=== PATIENT | female | born 1960 | race African-American/Black ===

== ENCOUNTER 2018-11-23 22:04 | Inpatient (IN) | payer MEDICAID ==
[~2018-11-23] VITALS: Ht 154.9 cm; Wt 64.2 kg
[2018-11-24] MEDS ORDERED: ONDANSETRON HCL 4MG/2ML INJ IV STA (00:52)
[2018-11-24] MEDS ORDERED: KETOROLAC 30MG/ML VIAL IV STA (00:52)
[2018-11-24] MEDS ORDERED: SODIUM CHLORIDE 0.9% 1,000 ML IV ONE (00:52)
[2018-11-24] MEDS ORDERED: CLONIDINE 0.2MG TABLET PO ONE (01:00)
[2018-11-24 01:17] LABS: BASOPHILS % 0.8 % (0.0-2.0); EOSINOPHILS % 0.7 % (0.0-5.0); HEMATOCRIT. 39.1 % (36.0-48.0); HEMOGLOBIN. 12.6 g/dL (12.0-16.0); LYMPHOCYTES % 25.4 % (20.0-50.0); MEAN CORPUSCULAR HEMOGLOBIN 26.4 pg (28.0-32.0); MONOCYTES % 6.2 % (2.0-8.0); NEUTROPHILS % 66.9 % (40.0-76.0); PLATELET 267 x1000/uL (130-400); RED BLOOD CELL COUNT 4.77 mill/uL (4.2-5.4)
[2018-11-24 01:23] LABS: CHLORIDE 99 mEq/L (98-107)
[2018-11-24 01:29] LABS: BETA HYDROXYBUTYRATE 0.6 mMol/L (0.0-0.3)
[2018-11-24] MEDS ORDERED: INSULIN REGULAR (HUMULIN R) 300UNITS/3ML SUBCUT NR (04:15)
[2018-11-24] MEDS ORDERED: GUAIFENESIN 200MG/10ML SUGAR FREE UDC PO PRN (08:30)
[2018-11-24] MEDS ORDERED: DIPHENHYDRAMINE 50MG/ML VIAL IV PRN (08:30)
[2018-11-24] MEDS ORDERED: ACETAMINOPHEN 325MG TABLET PO PRN (08:30)
[2018-11-24] MEDS ORDERED: ONDANSETRON HCL 4MG/2ML INJ IV PRN (08:30)
[2018-11-24] MEDS ORDERED: IPRATROPIUM/ALBUTEROL 0.5-3(2.5)MG/3ML NEB INH PRN (08:30)
[2018-11-24] MEDS ORDERED: CLONIDINE 0.1MG TABLET PO PRN (08:30)
[2018-11-24] MEDS ORDERED: HYDROCODONE/ACETAMINOPHEN 5/325MG TABLET PO PRN (08:30)
[2018-11-24] MEDS ORDERED: MAGNESIUM/ALUMINUM HYDROXIDE/SIMETHICONE 30ML UDC PO PRN (08:30)
[2018-11-24] MEDS ORDERED: DOCUSATE SODIUM 100MG CAPSULE PO PRN (08:30)
[2018-11-24 08:50] VITALS: BP 118/69
[2018-11-24 09:26] LABS: PHOSPHORUS 4.8 mg/dL (2.5-4.9)
[2018-11-24] MEDS ORDERED: DEXTROSE 50% WATER 50ML SYRINGE IV PRN (12:30)
[2018-11-24] MEDS: BLOOD SUGAR DIAGNOSTIC STRIP TEST SCH ×3 (13:10→21:12)
[2018-11-24] MEDS: INSULIN LISPRO 100 UNITS/ML SUBCUT SCH ×3 (13:46→21:14)
[2018-11-24] MEDS: ENOXAPARIN 40MG/0.4ML SYR SUBCUT SCH (13:48)
[2018-11-24 16:00] VITALS: BP 131/67
[2018-11-24] MEDS ORDERED: BLOOD SUGAR DIAGNOSTIC STRIP TEST SCH (16:45)
[2018-11-24] MEDS ORDERED: GABA800T97 MT (17:05)
[2018-11-24] MEDS ORDERED: FOLI-43 MT (17:06)
[2018-11-24] MEDS ORDERED: CLOP75TA33 MT (17:07)
[2018-11-24] MEDS ORDERED: CITA10SO PO (17:08)
[2018-11-24] MEDS ORDERED: BENA40TA9 MT (17:09)
[2018-11-24] MEDS ORDERED: INSU100I24 SQ (17:10)
[2018-11-24] MEDS ORDERED: GLAT40SY3 SQ (17:11)
[2018-11-24] MEDS ORDERED: INSULIN LISPRO 100 UNITS/ML SUBCUT SCH (17:15)
[2018-11-24] MEDS ORDERED: INFLUENZA VIRUS VACCINE(AFLURIA) 0.5ML SYR IM ONE (17:15)
[2018-11-24] MEDS ORDERED: PNEUMOCOCCAL 23-VAL P-SAC VAC 0.5 ML IM ONE (17:15)
[2018-11-24 20:00] VITALS: BP 139/60
[2018-11-24] MEDS: FOLIC ACID 1MG TABLET PO SCH (21:54)
[2018-11-24] MEDS: CLOPIDOGREL 75MG TABLET PO SCH (21:54)
[2018-11-24] MEDS: GABAPENTIN 400MG CAPSULE PO SCH (21:54)
[2018-11-24] MEDS: CITALOPRAM HYDROBROMIDE 10MG TABLET PO SCH (21:54)
[2018-11-24] MEDS: BENAZEPRIL 10MG TABLET PO SCH (21:56)
[2018-11-24] MEDS ORDERED: GABAPENTIN 300MG CAPSULE PO SCH (22:00)
[2018-11-25] VITALS: BP 143/71
[2018-11-25 04:00] VITALS: BP 135/59
[2018-11-25] MEDS: GABAPENTIN 400MG CAPSULE PO SCH ×2 (05:38→14:23)
[2018-11-25] MEDS: BLOOD SUGAR DIAGNOSTIC STRIP TEST SCH ×2 (06:00→12:33)
[2018-11-25] MEDS: INSULIN LISPRO 100 UNITS/ML SUBCUT SCH ×2 (06:37→12:43)
[2018-11-25 07:15] LABS: BASOPHILS % 0.5 % (0.0-2.0); EOSINOPHILS % 1.7 % (0.0-5.0); HEMATOCRIT. 33.5 % (36.0-48.0); LYMPHOCYTES % 29.1 % (20.0-50.0); MEAN CORPUSCULAR HEMOGLOBIN 26.9 pg (28.0-32.0); MEAN CORPUSCULAR VOLUME 81.8 fL (81.0-99.0); MEAN PLATELET VOLUME 9.2 fl (7.4-10.4); MONOCYTES % 6.6 % (2.0-8.0); NEUTROPHILS % 62.1 % (40.0-76.0); PLATELET 247 x1000/uL (130-400)
[2018-11-25 08:00] VITALS: BP 94/70
[2018-11-25 08:10] LABS: CHLORIDE 105 mEq/L (98-107)
[2018-11-25 08:24] LABS: LDL CHOLESTEROL 101 mg/dL (5-100)
[2018-11-25 08:26] LABS: HDL CHOLESTEROL 47 mg/dL (40-59)
[2018-11-25] MEDS: BENAZEPRIL 10MG TABLET PO SCH (09:00)
[2018-11-25] MEDS: CITALOPRAM HYDROBROMIDE 10MG TABLET PO SCH (09:23)
[2018-11-25] MEDS: FOLIC ACID 1MG TABLET PO SCH (09:23)
[2018-11-25] MEDS: CLOPIDOGREL 75MG TABLET PO SCH (09:25)
[2018-11-25] MEDS: ENOXAPARIN 40MG/0.4ML SYR SUBCUT SCH (09:26)
[2018-11-25 12:00] VITALS: BP 169/83
[2018-11-25 15:37] VITALS: BP 143/73
[2018-11-25 16:00] VITALS: BP 143/73
== END 2018-11-25 16:30 | disposition home or self-care (01) | DRG 347 ==
LOC: ER 22:04 → EDBEDREQTM 11-24 05:00 → EDBEDREQ 11-24 05:00 → ENRESERV 11-24 07:21 → 5WST 11-24 08:44
PROVIDERS: ADMIT Internal Medicine; ATTEND Internal Medicine
DX: M48.02 Spinal stenosis, cervical region (principal); E11.42 Type 2 diabetes mellitus with diabetic polyneuropathy; E11.65 Type 2 diabetes mellitus with hyperglycemia; G35 Multiple sclerosis; F17.200 Nicotine dependence, unspecified, uncomplicated; I10 Essential (primary) hypertension; Z86.73 Personal history of transient ischemic attack (TIA), and cerebral infarction without residual deficits; Z79.84 Long term (current) use of oral hypoglycemic drugs; Z71.6 Tobacco abuse counseling
CPT/HCPCS: 36415; 71045; 72141; 80061; 82010; 82962; 83036; 83735; 83880; 84100; 84443; 84484; 90686; 90732; 93005; 93880; 93970; 96361; 96372; 96374; 96375; 97162; 97166; 99291; J1650; J1815; J1885; J2405; J7030

== ENCOUNTER → 2021-11-13 | Day surgery (SDC) | payer MEDICAID ==
[~2021-11-13] VITALS: Ht 154.9 cm; Wt 52.2 kg
[~2021-11-13] MED LIST: AMLO5TAB88 PO; BALANCED SALT IRRIG SOLN 15ML ONE; BALANCED SALT IRRIG SOLN COMB1 500ML OP ONE; BENA40TA9 MT; BENA40TA9 PO; CIPROFLOXACIN 0.3% OPHTH SOLN 2.5ML ONE; CITA10SO PO; CITA10TA9 PO; CLOP75TA33 MT; CYCLOPENTOLATE HCL 1% OPHTH DROPS 2ML ONE; CYCLOPENTOLATE HCL 1% OPHTH DROPS 2ML RIGHTEYE NR; FENTANYL CITRATE/PF 50MCG/ML 2ML VIAL ONE; FOLI-43 MT; GABA800T97 MT; GLAT40SY3 SQ; HYALURONATE SODIUM 10 MG/ML 0.55ML SYRINGE IO ONE; HYDR25TA PO; INSU100I24 SQ; INSU100I38 SQ; LABETALOL 5MG/ML SYR 20 MG/4 ML SYRINGE IV NR; LABETALOL 5MG/ML SYR 20 MG/4 ML SYRINGE IV ONE; LIDOCAINE HCL/PF 2% 20 MG/ML 10ML VIAL ONE; MIDAZOLAM HCL 2 MG/2 ML VIAL ONE; NEO/POLYMYX B SULF/DEXAMETH OPHTH OINT 3.5GM ONE; PHENYLEPHRINE HCL 10% OPHTH DROPS 5ML RIGHTEYE NR; PREDNISOLONE ACETATE 1% OPHTH DROPS 5ML ONE; SIMV-46 PO; SODIUM CHLORIDE 0.9% 1,000 ML IV SCH; TETRACAINE 0.5% OPHTH DROPS 4ML ONE; TROPICAMIDE 1% OPHTH DROPS 15ML ONE; TROPICAMIDE 1% OPHTH DROPS 15ML RIGHTEYE NR
[2021-11-13 08:38] LABS: BASOPHILS % 0.8 % (0.0-2.0); EOSINOPHILS % 0.8 % (0.0-5.0); HEMATOCRIT. 36.4 % (36.0-48.0); HEMOGLOBIN. 11.9 g/dL (12.0-16.0); LYMPHOCYTES % 24.1 % (20.0-50.0); MEAN CORPUSCULAR HEMOGLOBIN 26.8 pg (28.0-32.0); MEAN CORPUSCULAR VOLUME 81.8 fL (81.0-99.0); MEAN PLATELET VOLUME 9.2 fl (7.4-10.4); MONOCYTES % 5.2 % (2.0-8.0); NEUTROPHILS % 69.1 % (40.0-76.0); PLATELET 281 x1000/uL (130-400); RED BLOOD CELL COUNT 4.45 mill/uL (4.2-5.4); RED CELL DISTRIBUTION WIDTH 12.9 % (11.6-14.6)
[2021-11-13 08:45] LABS: CHLORIDE 102 mEq/L (98-107)
[2021-11-13 10:28] VITALS: BP 196/89
== END | disposition home or self-care (01) ==
LOC: OR 07:38
PROVIDERS: ATTEND Ophthalmology
DX: E11.36 Type 2 diabetes mellitus with diabetic cataract (principal); H25.89 Other age-related cataract; I10 Essential (primary) hypertension; E78.00 Pure hypercholesterolemia, unspecified; F17.210 Nicotine dependence, cigarettes, uncomplicated; Z86.73 Personal history of transient ischemic attack (TIA), and cerebral infarction without residual deficits; Z79.899 Other long term (current) drug therapy; Z98.890 Other specified postprocedural states; Z20.822 Contact with and (suspected) exposure to COVID-19; Z79.4 Long term (current) use of insulin; Z82.49 Family history of ischemic heart disease and other diseases of the circulatory system; Z83.3 Family history of diabetes mellitus
CPT/HCPCS: 36415; 66984; 80048; 82962; 85025; 87426; 93005; J2250; J3010; J3490; V2632

== ENCOUNTER → 2022-01-29 | Day surgery (SDC) | payer MEDICAID ==
[~2022-01-29] VITALS: Ht 154.9 cm; Wt 52.2 kg
[~2022-01-29] MED LIST changes: -BALANCED SALT IRRIG SOLN COMB1 500ML OP ONE; -BENA40TA9 MT; -CITA10SO PO; +CYCLOPENTOLATE HCL 1% OPHTH DROPS 2ML LEFTEYE NR; -CYCLOPENTOLATE HCL 1% OPHTH DROPS 2ML RIGHTEYE NR; +INSULIN REGULAR (HUMULIN R) 300UNITS/3ML VIAL SUBCUT NR; -LABETALOL 5MG/ML SYR 20 MG/4 ML SYRINGE IV NR; -LABETALOL 5MG/ML SYR 20 MG/4 ML SYRINGE IV ONE; +LABETALOL HCL 5MG/ML VIAL 20ML IV ONE; +LIDOCAINE HCL 1% 50ML VIAL (10MG/ML) ONE; +PHENYLEPHRINE HCL 10% OPHTH DROPS 5ML LEFTEYE NR; +PHENYLEPHRINE HCL 10% OPHTH DROPS 5ML ONE; -PHENYLEPHRINE HCL 10% OPHTH DROPS 5ML RIGHTEYE NR; -SODIUM CHLORIDE 0.9% 1,000 ML IV SCH; +TROPICAMIDE 1% OPHTH DROPS 15ML LEFTEYE NR; -TROPICAMIDE 1% OPHTH DROPS 15ML RIGHTEYE NR
[2022-01-29 08:45] LABS: BASOPHILS % 0.7 % (0.0-2.0); HEMATOCRIT. 37.2 % (36.0-48.0); HEMOGLOBIN. 11.9 g/dL (12.0-16.0); LYMPHOCYTES % 23.7 % (20.0-50.0); MEAN CORPUSCULAR HEMOGLOBIN 26.7 pg (28.0-32.0); MEAN CORPUSCULAR VOLUME 83.6 fL (81.0-99.0); MEAN PLATELET VOLUME 9.9 fl (7.4-10.4); MONOCYTES % 5.6 % (2.0-8.0); PLATELET 259 x1000/uL (130-400); RED BLOOD CELL COUNT 4.45 mill/uL (4.2-5.4)
[2022-01-29 08:59] LABS: CHLORIDE 102 mEq/L (98-107)
== END | disposition home or self-care (01) ==
LOC: OR 07:37
PROVIDERS: ATTEND Ophthalmology
DX: E11.36 Type 2 diabetes mellitus with diabetic cataract (principal); H25.89 Other age-related cataract; I10 Essential (primary) hypertension; E78.00 Pure hypercholesterolemia, unspecified; F17.210 Nicotine dependence, cigarettes, uncomplicated; Z79.899 Other long term (current) drug therapy; Z98.890 Other specified postprocedural states; Z79.4 Long term (current) use of insulin; Z20.822 Contact with and (suspected) exposure to COVID-19
CPT/HCPCS: 36415; 66984; 80048; 82962; 85025; 87426; 93005; C1893; C9803; J2250; J3010; J3490; V2632

== ENCOUNTER 2022-04-20 17:49 | Inpatient (IN) | payer MEDICAID ==
[~2022-04-20] VITALS: Ht 160 cm; Wt 75.3 kg
[~2022-04-20 17:49] MED LIST changes: -BALANCED SALT IRRIG SOLN 15ML ONE; -BENA40TA9 PO; +BENA40TA91 PO; -CIPROFLOXACIN 0.3% OPHTH SOLN 2.5ML ONE; +CITA10TA88 PO; -CITA10TA9 PO; -CYCLOPENTOLATE HCL 1% OPHTH DROPS 2ML LEFTEYE NR; -CYCLOPENTOLATE HCL 1% OPHTH DROPS 2ML ONE; -FENTANYL CITRATE/PF 50MCG/ML 2ML VIAL ONE; -HYALURONATE SODIUM 10 MG/ML 0.55ML SYRINGE IO ONE; -INSULIN REGULAR (HUMULIN R) 300UNITS/3ML VIAL SUBCUT NR; -LABETALOL HCL 5MG/ML VIAL 20ML IV ONE; -LIDOCAINE HCL 1% 50ML VIAL (10MG/ML) ONE; -LIDOCAINE HCL/PF 2% 20 MG/ML 10ML VIAL ONE; -MIDAZOLAM HCL 2 MG/2 ML VIAL ONE; -NEO/POLYMYX B SULF/DEXAMETH OPHTH OINT 3.5GM ONE; -PHENYLEPHRINE HCL 10% OPHTH DROPS 5ML LEFTEYE NR; -PHENYLEPHRINE HCL 10% OPHTH DROPS 5ML ONE; -PREDNISOLONE ACETATE 1% OPHTH DROPS 5ML ONE; -TETRACAINE 0.5% OPHTH DROPS 4ML ONE; -TROPICAMIDE 1% OPHTH DROPS 15ML LEFTEYE NR; -TROPICAMIDE 1% OPHTH DROPS 15ML ONE
[2022-04-20 19:13] LABS: BASOPHILS % 0.3 % (0.0-2.0); HEMATOCRIT. 43.3 % (36.0-48.0); HEMOGLOBIN. 12.6 g/dL (12.0-16.0); LYMPHOCYTES % 7.4 % (20.0-50.0); MEAN CORPUSCULAR HEMOGLOBIN 26.1 pg (28.0-32.0); MEAN CORPUSCULAR VOLUME 89.8 fL (81.0-99.0); MEAN PLATELET VOLUME 10.8 fl (7.4-10.4); MONOCYTES % 6.5 % (2.0-8.0); NEUTROPHILS % 85.8 % (40.0-76.0); PLATELET 223 x1000/uL (130-400); RED BLOOD CELL COUNT 4.82 mill/uL (4.2-5.4); RED CELL DISTRIBUTION WIDTH 14.2 % (11.6-14.6)
[2022-04-20] MEDS ORDERED: VANCOMYCIN 1G PREMIX 200 ML IV NR (19:15)
[2022-04-20 19:16] LABS: CHLORIDE 101 mEq/L (98-107)
[2022-04-20] MEDS: PIPERACILLIN/TAZ 3.375G PREMIX 50 ML IV NR ×2 (19:41→19:59)
[2022-04-20] MEDS ORDERED: SODIUM CHLORIDE 0.9% 1000ML BAG (SEPSIS BOLUS) IV ONE (19:45)
[2022-04-20] MEDS ORDERED: ENOXAPARIN 80MG/0.8ML SYR SUBCUT NR (22:15)
[2022-04-20 23:56] LABS: INR 1.4
[2022-04-21] VITALS (11 sets, daily range): BP systolic 93–117; BP diastolic 57–79
[2022-04-21 10:01] LABS: BG BASE EXCESS -16.7 mmol/L (-2.0-2.0); BG CARBOXYHEMOGLOBIN 0.1 % (0.5-1.5); BG DEOXYHEMOGLOBIN 3.7 % (0.0-5.0); BG HCO3 ACT 9.6 mmol/L (22.0-26.0); BG METHEMOGLOBIN 0.2 % (0.0-1.5); BG OXYGEN SATURATION 96.3 % (92.0-98.5); BG PCO2 24.9 mmHg (35.0-45.0); BG PH 7.203 (7.350-7.450); BG PO2 105.8 mmHg (75.0-100.0); BG SAMPLE SITE LEFT RADIAL; BG TOTAL HEMOGLOBIN 12.4 g/dL (12.0-18.0); BG VENT MODE MASK - SIMPLE
[2022-04-21] MEDS ORDERED: SODIUM BICARBONATE 8.4% 1 MEQ/ML 50ML SYR IV NR (10:30)
[2022-04-21] MEDS ORDERED: DEXTROSE 50% WATER 50ML SYRINGE IV PRN (10:30)
[2022-04-21] MEDS: ASPIRIN 81MG TABLET PO SCH (10:50)
[2022-04-21] MEDS ORDERED: SODIUM BICARBONATE 8.4% 1 MEQ/ML 50ML SYR IV SCH (11:00)
[2022-04-21] MEDS ORDERED: SODIUM CHLORIDE 0.9% 1,000 ML IV SCH (11:00)
[2022-04-21] MEDS ORDERED: FUROSEMIDE 20MG/2ML VIAL IVP NR (11:00)
[2022-04-21] MEDS ORDERED: INSULIN GLARGINE 100 UNITS/ML SUBCUT SCH (11:00)
[2022-04-21] MEDS: BLOOD SUGAR DIAGNOSTIC STRIP TEST SCH ×3 (12:30→21:50)
[2022-04-21] MEDS: PIPERACILLIN/TAZOBACTAM 3.375 G in DEXTROSE 5% WATER 50 ML IV SCH ×2 (12:49→21:51)
[2022-04-21] MEDS: INSULIN LISPRO 100 UNITS/ML SUBCUT SCH ×3 (12:53→21:55)
[2022-04-21] MEDS ORDERED: ENOXAPARIN 60MG/0.6ML SYR SUBCUT SCH (13:00)
[2022-04-21 13:22] LABS: CHLORIDE 101 mEq/L (98-107)
[2022-04-21 13:28] LABS: HEMATOCRIT. 37.7 % (36.0-48.0); HEMOGLOBIN. 11.6 g/dL (12.0-16.0); MEAN CORPUSCULAR VOLUME 84.7 fL (81.0-99.0); MEAN PLATELET VOLUME 11.4 fl (7.4-10.4); PLATELET 112 x1000/uL (130-400); RED BLOOD CELL COUNT 4.45 mill/uL (4.2-5.4); RED CELL DISTRIBUTION WIDTH 13.4 % (11.6-14.6)
[2022-04-21 13:45] LABS: BETA HYDROXYBUTYRATE 1.8 mMol/L (0.0-0.3)
[2022-04-21] MEDS ORDERED: FUROSEMIDE 40MG/4ML VIAL IVP SCH (17:00)
[2022-04-21] MEDS: SODIUM BICARBONATE 150 MEQ in DEXTROSE 5% WATER 1,000 ML IV SCH (17:46)
[2022-04-21] MEDS ORDERED: IPRATROPIUM/ALBUTEROL 0.5-3(2.5)MG/3ML NEB HHN PRN (18:15)
[2022-04-21] MEDS: INSULIN GLARGINE 100 UNITS/ML SUBCUT SCH (21:56)
[2022-04-22] VITALS (12 sets, daily range): BP systolic 101–135; BP diastolic 53–85
[2022-04-22] MEDS: PIPERACILLIN/TAZOBACTAM 3.375 G in DEXTROSE 5% WATER 50 ML IV SCH (05:25)
[2022-04-22 07:15] LABS: BASOPHILS % 0.1 % (0.0-2.0); EOSINOPHILS % 0.5 % (0.0-5.0); HEMATOCRIT. 36.5 % (36.0-48.0); HEMOGLOBIN. 11.7 g/dL (12.0-16.0); LYMPHOCYTES % 10.1 % (20.0-50.0); MEAN CORPUSCULAR HEMOGLOBIN 26.3 pg (28.0-32.0); MEAN CORPUSCULAR VOLUME 82.4 fL (81.0-99.0); MEAN PLATELET VOLUME 11.2 fl (7.4-10.4); MONOCYTES % 6.4 % (2.0-8.0); NEUTROPHILS % 82.9 % (40.0-76.0); PLATELET 87 x1000/uL (130-400); RED BLOOD CELL COUNT 4.43 mill/uL (4.2-5.4); RED CELL DISTRIBUTION WIDTH 13.3 % (11.6-14.6)
[2022-04-22] MEDS: BLOOD SUGAR DIAGNOSTIC STRIP TEST SCH ×4 (07:30→21:00)
[2022-04-22] MEDS: ASPIRIN 81MG TABLET PO SCH (09:08)
[2022-04-22 09:09] LABS: BG CARBOXYHEMOGLOBIN 0.2 % (0.5-1.5); BG DEOXYHEMOGLOBIN 2.7 % (0.0-5.0); BG FRACTION INSPIRED OXYGEN 36; BG HCO3 ACT 19.4 mmol/L (22.0-26.0); BG METHEMOGLOBIN 0.3 % (0.0-1.5); BG OXYGEN SATURATION 97.3 % (92.0-98.5); BG OXYHEMOGLOBIN 96.8 % (94.0-97.0); BG PCO2 27.2 mmHg (35.0-45.0); BG PH 7.472 (7.350-7.450); BG PO2 108.7 mmHg (75.0-100.0); BG SAMPLE SITE LEFT RADIAL; BG TOTAL HEMOGLOBIN 11.7 g/dL (12.0-18.0); BG VENT MODE NASAL CANNULA
[2022-04-22] MEDS: INSULIN LISPRO 100 UNITS/ML SUBCUT SCH ×4 (09:09→21:00)
[2022-04-22] MEDS: INSULIN GLARGINE 100 UNITS/ML SUBCUT SCH ×2 (09:09→21:31)
[2022-04-22] MEDS ORDERED: ENOXAPARIN 60MG/0.6ML SYR SUBCUT SCH (13:00)
[2022-04-22] MEDS ORDERED: CEFEPIME 2,000 MG in DEXT 5% WATER 100 ML IV SCH (13:30)
[2022-04-22 13:42] LABS: PLATELET ESTIMATE SLIGHTLY DECREASED
[2022-04-22] MEDS ORDERED: CEFEPIME 1,000 MG in DEXTROSE 5% WATER 50 ML IV SCH (15:00)
[2022-04-22] MEDS: SODIUM BICARBONATE 150 MEQ in DEXTROSE 5% WATER 1,000 ML IV SCH (16:45)
[2022-04-22 18:26] LABS: BG BASE EXCESS -0.6 mmol/L (-2.0-2.0); BG DEOXYHEMOGLOBIN 7.8 % (0.0-5.0); BG FRACTION INSPIRED OXYGEN 21; BG HCO3 ACT 20.7 mmol/L (22.0-26.0); BG METHEMOGLOBIN 0.3 % (0.0-1.5); BG OXYGEN SATURATION 92.2 % (92.0-98.5); BG OXYHEMOGLOBIN 91.9 % (94.0-97.0); BG PCO2 24.8 mmHg (35.0-45.0); BG PH 7.539 (7.350-7.450); BG PO2 62.8 mmHg (75.0-100.0); BG SAMPLE SITE RIGHT RADIAL; BG TOTAL HEMOGLOBIN 11.8 g/dL (12.0-18.0); BG VENT MODE ROOM AIR
[2022-04-22 21:34] LABS: D-DIMER 23.18 mg/L FEU (<0.50); PROTHROMBIN TIME 20.3 sec (9.6-11.0)
[2022-04-23] VITALS (12 sets, daily range): BP systolic 106–140; BP diastolic 61–95
[2022-04-23 06:30] LABS: PHOSPHORUS 5.9 mg/dL (2.5-4.9)
[2022-04-23 06:34] LABS: BASOPHILS % 0.1 % (0.0-2.0); EOSINOPHILS % 0.4 % (0.0-5.0); HEMATOCRIT. 36.2 % (36.0-48.0); HEMOGLOBIN. 11.7 g/dL (12.0-16.0); LYMPHOCYTES % 10.1 % (20.0-50.0); MEAN CORPUSCULAR HEMOGLOBIN 26.7 pg (28.0-32.0); MEAN CORPUSCULAR VOLUME 82.8 fL (81.0-99.0); MEAN PLATELET VOLUME 11.1 fl (7.4-10.4); NEUTROPHILS % 83.4 % (40.0-76.0); PLATELET 60 x1000/uL (130-400); RED BLOOD CELL COUNT 4.38 mill/uL (4.2-5.4); RED CELL DISTRIBUTION WIDTH 13.4 % (11.6-14.6)
[2022-04-23] MEDS: INSULIN LISPRO 100 UNITS/ML SUBCUT SCH ×4 (08:00→21:00)
[2022-04-23] MEDS: BLOOD SUGAR DIAGNOSTIC STRIP TEST SCH ×4 (08:27→21:00)
[2022-04-23] MEDS: INSULIN GLARGINE 100 UNITS/ML SUBCUT SCH ×2 (10:00→22:00)
[2022-04-23 11:15] LABS: CLARITY URINE TURBID (CLEAR); COLOR URINE DARK YELLOW (YELLOW); KETONES URINE TRACE (NEGATIVE); LEUKOCYTE ESTERASE URINE 2+ (NEGATIVE); NITRITE URINE NEGATIVE (NEGATIVE); OCCULT BLOOD URINE 3+ (NEGATIVE); PH URINE 5.5 (4.5-8.0); PROTEIN URINE 4+ (NEGATIVE); SPECIFIC GRAVITY URINE 1.024 (1.005-1.030); UROBILINOGEN URINE 0.2 E.U./dL (0.2-1.0)
[2022-04-23 12:20] LABS: INR 2.3; PROTHROMBIN TIME 22.7 sec (9.6-11.0)
[2022-04-23 12:39] LABS: HEPATITIS B SURFACE ANTIGEN NEGATIVE
[2022-04-23] MEDS ORDERED: PHYTONADIONE 10MG/ML AMP SUBCUT SCH (14:00)
[2022-04-23 15:32] LABS: INR 2.5; PROTHROMBIN TIME 24.8 sec (9.6-11.0)
[2022-04-23 15:44] LABS: T4 FREE 1.48 ng/dL (0.76-1.46)
[2022-04-23 16:00] LABS: FOLIC ACID (FOLATE) SERUM >20 ng/mL ng/mL (>5.38); VITAMIN B12 SERUM >2000 pg/mL pg/mL (211-911)
[2022-04-23] MEDS: CEFEPIME 1,000 MG in DEXTROSE 5% WATER 50 ML IV SCH (17:08)
[2022-04-23] MEDS ORDERED: ONDANSETRON HCL 4MG/2ML INJ IV PRN (20:00)
[2022-04-24] VITALS (12 sets, daily range): BP systolic 92–137; BP diastolic 60–76
[2022-04-24 06:43] LABS: CHLORIDE 98 mEq/L (98-107)
[2022-04-24 06:44] LABS: BASOPHILS % 0.1 % (0.0-2.0); EOSINOPHILS % 0.1 % (0.0-5.0); HEMOGLOBIN. 11.3 g/dL (12.0-16.0); LYMPHOCYTES % 12.9 % (20.0-50.0); MEAN CORPUSCULAR HEMOGLOBIN 26.6 pg (28.0-32.0); MEAN CORPUSCULAR VOLUME 82.7 fL (81.0-99.0); MEAN PLATELET VOLUME 11.7 fl (7.4-10.4); MONOCYTES % 8.1 % (2.0-8.0); NEUTROPHILS % 78.8 % (40.0-76.0); PLATELET 51 x1000/uL (130-400); RED BLOOD CELL COUNT 4.23 mill/uL (4.2-5.4); RED CELL DISTRIBUTION WIDTH 13.6 % (11.6-14.6)
[2022-04-24 07:06] LABS: CREATINE KINASE 1180 IU/L (26-192); PHOSPHORUS 5.9 mg/dL (2.5-4.9)
[2022-04-24] MEDS: BLOOD SUGAR DIAGNOSTIC STRIP TEST SCH ×4 (07:30→21:17)
[2022-04-24] MEDS: INSULIN LISPRO 100 UNITS/ML SUBCUT SCH ×4 (08:00→21:00)
[2022-04-24] MEDS ORDERED: DILTIAZEM HCL 5MG/ML 5ML VIAL IV SCH (10:00)
[2022-04-24] MEDS: INSULIN GLARGINE 100 UNITS/ML SUBCUT SCH (10:00)
[2022-04-24] MEDS ORDERED: ALBUMIN HUMAN 25GM/100ML (25%) IV SCH (10:00)
[2022-04-24] MEDS ORDERED: PHYTONADIONE 10MG/ML AMP SUBCUT NR (12:00)
[2022-04-24] MEDS: CEFEPIME 1,000 MG in DEXTROSE 5% WATER 50 ML IV SCH (15:58)
[2022-04-24 16:16] LABS: INR 2.3; PROTHROMBIN TIME 22.7 sec (9.6-11.0)
[2022-04-25] VITALS (12 sets, daily range): BP systolic 87–126; BP diastolic 52–70
[2022-04-25] MEDS ORDERED: DILTIAZEM HCL 5MG/ML 5ML VIAL IV PRN
[2022-04-25 07:06] LABS: INR 2.1; PROTHROMBIN TIME 21.2 sec (9.6-11.0)
[2022-04-25 07:11] LABS: PHOSPHORUS 6.8 mg/dL (2.5-4.9)
[2022-04-25 07:28] LABS: HEMATOCRIT. 32.2 % (36.0-48.0); MEAN CORPUSCULAR HEMOGLOBIN 26.3 pg (28.0-32.0); MEAN CORPUSCULAR VOLUME 84.5 fL (81.0-99.0); MEAN PLATELET VOLUME 11.9 fl (7.4-10.4); RED BLOOD CELL COUNT 3.81 mill/uL (4.2-5.4); RED CELL DISTRIBUTION WIDTH 13.7 % (11.6-14.6)
[2022-04-25] MEDS: INSULIN LISPRO 100 UNITS/ML SUBCUT SCH ×4 (08:00→22:27)
[2022-04-25] MEDS: BLOOD SUGAR DIAGNOSTIC STRIP TEST SCH ×4 (08:17→21:00)
[2022-04-25] MEDS: DILTIAZEM HCL 30MG TABLET PO SCH ×4 (09:30→23:28)
[2022-04-25 09:55] LABS: NUCLEATED RED BLOOD CELLS 7 /100 WBC; PLATELET ESTIMATE MARKEDLY DECREASED
[2022-04-25 09:56] LABS: PLATELET 43 x1000/uL (130-400)
[2022-04-25] MEDS: CEFEPIME 1,000 MG in DEXTROSE 5% WATER 50 ML IV SCH (12:32)
[2022-04-25] MEDS ORDERED: LEVOFLOXACIN 500MG TABLET PO SCH (17:00)
[2022-04-25] MEDS: FOLIC ACID/VITAMIN B COMP W-C TABLET PO SCH (18:19)
[2022-04-25] MEDS: METRONIDAZOLE 250MG TABLET PO SCH (21:09)
[2022-04-26] VITALS (21 sets, daily range): BP systolic 93–117; BP diastolic 54–83
[2022-04-26] MEDS: METRONIDAZOLE 250MG TABLET PO SCH ×2 (06:02→15:09)
[2022-04-26] MEDS: DILTIAZEM HCL 30MG TABLET PO SCH ×3 (06:02→17:27)
[2022-04-26] MEDS: BLOOD SUGAR DIAGNOSTIC STRIP TEST SCH ×3 (07:54→17:26)
[2022-04-26] MEDS: INSULIN LISPRO 100 UNITS/ML SUBCUT SCH (07:55)
[2022-04-26] MEDS ORDERED: MAGNESIUM SULFATE 4G IN WATER 100ML PREMIX IV ONE (08:05)
[2022-04-26] MEDS ORDERED: EPINEPHRINE 0.1MG/ML (1:10,000) 10ML SYR ONE (08:05)
[2022-04-26] MEDS ORDERED: ATROPINE SULFATE 1MG/10ML SYR ONE (08:05)
[2022-04-26] MEDS ORDERED: SODIUM BICARBONATE 8.4% 1 MEQ/ML 50ML SYR IV ONE (08:05)
[2022-04-26] MEDS ORDERED: DEXTROSE 50% WATER 50ML SYRINGE IV ONE (08:05)
[2022-04-26] MEDS: FOLIC ACID/VITAMIN B COMP W-C TABLET PO SCH ×2 (09:00→09:45)
[2022-04-26] MEDS ORDERED: DEXTROSE 50% WATER 50ML SYRINGE IV PRN (10:15)
[2022-04-26 11:54] LABS: HEMATOCRIT. 27.1 % (36.0-48.0); HEMOGLOBIN. 8.4 g/dL (12.0-16.0); MEAN CORPUSCULAR HEMOGLOBIN 26.7 pg (28.0-32.0); MEAN CORPUSCULAR VOLUME 86.8 fL (81.0-99.0); MEAN PLATELET VOLUME 9.9 fl (7.4-10.4); PLATELET 97 x1000/uL (130-400); RED BLOOD CELL COUNT 3.13 mill/uL (4.2-5.4); RED CELL DISTRIBUTION WIDTH 13.8 % (11.6-14.6)
[2022-04-26 12:09] LABS: INR 1.8; PROTHROMBIN TIME 18.9 sec (9.6-11.0)
[2022-04-26 12:17] LABS: NUCLEATED RED BLOOD CELLS 10 /100 WBC; PLATELET ESTIMATE DECREASED
[2022-04-26] MEDS ORDERED: PANTOPRAZOLE SODIUM 40 MG/VIAL IV SCH (12:30)
[2022-04-26 12:37] LABS: PHOSPHORUS 8.5 mg/dL (2.5-4.9)
[2022-04-26] MEDS ORDERED: SODIUM BICARBONATE 4% (2.4MEQ) 5ML VIAL IV ONE (12:47)
[2022-04-26] MEDS ORDERED: INSULIN LISPRO 100 UNITS/ML SUBCUT SCH (13:00)
[2022-04-26 14:31] LABS: TOTAL IRON BINDING CAPACITY 213 ug/dL (250-450)
[2022-04-26 15:10] LABS: VITAMIN B12 SERUM > 2000.0 pg/mL (211-911)
[2022-04-26 15:43] LABS: FERRITIN 599 ng/mL (10-291)
[2022-04-26] MEDS ORDERED: SODIUM CHLORIDE 0.9% 250 ML IV ONE (17:45)
== END 2022-04-26 21:00 | DRG 133 ==
LOC: ER 17:49 → MICUSO 21:04 → 5EST 04-21 09:28
PROVIDERS: ADMIT Internal Medicine; ATTEND Internal Medicine
PROC: 02HV33Z Insertion of Infusion Device into Superior Vena Cava, Percutaneous Approach (ICD-10-PCS; 2022-04-23)
PROC: B5181ZA Fluoroscopy of Superior Vena Cava using Low Osmolar Contrast, Guidance (ICD-10-PCS; 2022-04-23)
PROC: B548ZZA Ultrasonography of Superior Vena Cava, Guidance (ICD-10-PCS; 2022-04-23)
PROC: 5A1D80Z Performance of Urinary Filtration, Prolonged Intermittent, 6-18 hours Per Day (ICD-10-PCS; 2022-04-24)
PROC: 0BH17EZ Insertion of Endotracheal Airway into Trachea, Via Natural or Artificial Opening (ICD-10-PCS; principal; 2022-04-26)
PROC: 30233K1 Transfusion of Nonautologous Frozen Plasma into Peripheral Vein, Percutaneous Approach (ICD-10-PCS; 2022-04-26)
PROC: 0W994ZZ Drainage of Right Pleural Cavity, Percutaneous Endoscopic Approach (ICD-10-PCS; 2022-04-26)
PROC: 30233R1 Transfusion of Nonautologous Platelets into Peripheral Vein, Percutaneous Approach (ICD-10-PCS; 2022-04-26)
PROC: 5A1935Z Respiratory Ventilation, Less than 24 Consecutive Hours (ICD-10-PCS; 2022-04-26)
DX: J96.01 Acute respiratory failure with hypoxia (principal); N17.0 Acute kidney failure with tubular necrosis; G92.8 Other toxic encephalopathy; G82.50 Quadriplegia, unspecified; E46 Unspecified protein-calorie malnutrition; I21.4 Non-ST elevation (NSTEMI) myocardial infarction; K81.0 Acute cholecystitis; J18.9 Pneumonia, unspecified organism; I63.81 Other cerebral infarction due to occlusion or stenosis of small artery; E87.2 Acidosis; K72.90 Hepatic failure, unspecified without coma; I42.9 Cardiomyopathy, unspecified; E83.51 Hypocalcemia; E83.39 Other disorders of phosphorus metabolism; I11.0 Hypertensive heart disease with heart failure; G35 Multiple sclerosis; I10 Essential (primary) hypertension; R74.01 Elevation of levels of liver transaminase levels; E78.5 Hyperlipidemia, unspecified; E80.6 Other disorders of bilirubin metabolism; E87.70 Fluid overload, unspecified; D75.839 Thrombocytosis, unspecified; I48.0 Paroxysmal atrial fibrillation; E87.6 Hypokalemia; R13.10 Dysphagia, unspecified; Z20.822 Contact with and (suspected) exposure to COVID-19; Z68.29 Body mass index [BMI] 29.0-29.9, adult; Z79.4 Long term (current) use of insulin; Z86.73 Personal history of transient ischemic attack (TIA), and cerebral infarction without residual deficits; E11.65 Type 2 diabetes mellitus with hyperglycemia; I50.23 Acute on chronic systolic (congestive) heart failure; M62.82 Rhabdomyolysis; N20.0 Calculus of kidney; D68.9 Coagulation defect, unspecified; E83.41 Hypermagnesemia; I46.9 Cardiac arrest, cause unspecified; I51.3 Intracardiac thrombosis, not elsewhere classified; N39.0 Urinary tract infection, site not specified; D69.6 Thrombocytopenia, unspecified; R47.01 Aphasia; L89.90 Pressure ulcer of unspecified site, unspecified stage; Z99.2 Dependence on renal dialysis
CPT/HCPCS: 32555; 36415; 36556; 36600; 70551; 71045; 71250; 76700; 76937; 77001; 80048; 80053; 81003; 82010; 82040; 82140; 82330; 82375; 82550; 82607; 82728; 82746; 82805; 82962; 83036; 83540; 83550; 83605; 83615; 83735; 83880; 84100; 84145; 84439; 84443; 84481; 84484; 85025; 85044; 85362; 85379; 85384; 86705; 86709; 86803; 86850; 86900; 86927; 87340; 87426; 88108; 88312; 92610; 93005; 93306; 93970; 99291; C1752; C9113; C9803; J0461; J0692; J1650; J1815; J1940; J2405; J2543; J3370; J3430; J3475; J3490; J7030; J7060; J7070; P9017; P9034; P9047; A4315